=== PATIENT | female | born 1955 | race Caucasian/White ===

== ENCOUNTER 2020-08-22 17:58 | Outpatient (REF) | payer MEDICAID, SELFPAY ==
[2020-08-22 20:35] LABS: Calculated LDL 175 mg/dL (<100); Cholesterol 256 mg/dL (<200); HDL Cholesterol 60 mg/dL (40-60); Triglyceride 105 mg/dL (<150)
[2020-08-22 20:44] LABS: Hemoglobin A1C 5.3 % (<5.7)
== END 2020-08-22 17:59 | disposition home or self-care (01) ==
LOC: NCHCN 17:58
PROVIDERS: Visit Provider Family Medicine
DX: Z00.00 Encounter for general adult medical examination without abnormal findings (principal); Z13.1 Encounter for screening for diabetes mellitus; Z13.220 Encounter for screening for lipoid disorders
CPT/HCPCS: 80061; 83036

== ENCOUNTER 2021-06-25 21:16 | Outpatient (REF) | payer MEDICARE, SELFPAY | END 2021-06-25 21:17 | disposition home or self-care (01) | LOC: NCHCN 21:16 | PROVIDERS: Visit Provider Family Medicine | DX: R30.0 Dysuria (principal) | CPT/HCPCS: 87077; 87086; 87186 ==

== ENCOUNTER 2021-07-10 14:41 | Outpatient (REF) | payer MEDICARE, SELFPAY | END 2021-07-10 14:42 | disposition home or self-care (01) | LOC: NCHCN 14:41 | PROVIDERS: PCP Family Medicine; Visit Provider Family Medicine | DX: N39.0 Urinary tract infection, site not specified (principal) | CPT/HCPCS: 87077; 87086; 87186 ==

== ENCOUNTER 2021-09-06 16:44 | Outpatient (REF) | payer MEDICARE, SELFPAY ==
[2021-09-08 12:34] LABS: COVID-19 RT-PCR UVMMC Result Negative (Negative)
== END 2021-09-06 16:45 | disposition home or self-care (01) ==
LOC: NCHCN 16:44
PROVIDERS: PCP Family Medicine; Visit Provider Family Medicine
DX: Z20.822 Contact with and (suspected) exposure to COVID-19 (principal); J06.9 Acute upper respiratory infection, unspecified
CPT/HCPCS: U0003

== ENCOUNTER 2021-11-22 19:07 | Outpatient (REF) | payer MEDICARE, SELFPAY | END 2021-11-22 19:08 | disposition home or self-care (01) | LOC: LBN 19:07 | PROVIDERS: PCP Family Medicine; Visit Provider Urology | DX: N20.0 Calculus of kidney (principal) | CPT/HCPCS: 87086 ==

== ENCOUNTER 2023-03-03 22:16 | Outpatient (REF) | payer MEDICARE, SELFPAY ==
[2023-03-03 16:17] LABS: HCT 40.5 % (36.0-46.0); HGB 13.1 g/dL (11.2-15.7); MCH 28.3 pg (27.0-33.0); MCHC 32.3 % (32.0-36.0); MCV 88 fL (80-95); MPV 11.6 fL (8.0-11.0); Platelet Count 241 10^3/uL (130-400); RBC 4.63 10^6/uL (3.93-5.22); RDW 13.9 % (11.7-14.6); RDW-SD 44.8 fL; WBC 5.04 10^3/uL (4.4-10.8)
[2023-03-03 16:43] LABS: Anion Gap 8.5 mmol/L (3-11); BUN 21 mg/dL (7-18); CO2 25.5 mmol/L (21.0-32.0); Calcium 10.3 mg/dL (8.5-10.1); Calculated LDL 164 mg/dL (<100); Chloride 105 mmol/L (98-107); Cholesterol 257 mg/dL (<200); Estimated GFR 61.75 (mL/min/1.73m2); Glucose 93 mg/dL (74-106); HDL Cholesterol 64 mg/dL (40-60); Potassium 4.1 mmol/L (3.5-5.1); Sodium 139 mmol/L (136-145); Triglyceride 146 mg/dL (<150)
[2023-03-04 09:20] LABS: Vitamin D 25 Total 43.3 ng/mL (30-100)
== END 2023-03-03 22:17 | disposition home or self-care (01) ==
LOC: NCHCN 22:16
PROVIDERS: PCP Family Medicine; Visit Provider Family Medicine
DX: Z00.00 Encounter for general adult medical examination without abnormal findings (principal); R03.0 Elevated blood-pressure reading, without diagnosis of hypertension; E83.52 Hypercalcemia; M85.88 Other specified disorders of bone density and structure, other site; D72.819 Decreased white blood cell count, unspecified; Z13.220 Encounter for screening for lipoid disorders
CPT/HCPCS: 80048; 80061; 82306; 85027

== ENCOUNTER 2024-03-23 07:54 | Outpatient (REF) | payer MEDICARE, SELFPAY ==
[2024-03-23 14:55] LABS: Anion Gap 6.7 mmol/L (3-11); BUN 13 mg/dL (7-18); CO2 27.3 mmol/L (21.0-32.0); CREATININE 1.1 mg/dL (0.55-1.02); Calcium 10.1 mg/dL (8.5-10.1); Calculated LDL 163 mg/dL (<100); Chloride 108 mmol/L (98-107); Cholesterol 255 mg/dL (<200); Estimated GFR 54.73 (mL/min/1.73m2); Glucose 100 mg/dL (74-106); HDL Cholesterol 73 mg/dL (40-60); Potassium 4.5 mmol/L (3.5-5.1); Sodium 142 mmol/L (136-145); Triglyceride 95 mg/dL (<150)
== END 2024-03-23 07:55 | disposition home or self-care (01) ==
LOC: NCHCN 07:54
PROVIDERS: PCP Family Medicine; Visit Provider Nurse Practitioner Family
DX: E78.5 Hyperlipidemia, unspecified (principal)
CPT/HCPCS: 80048; 80061

== ENCOUNTER 2024-09-27 14:06 | Outpatient (REF) | payer MEDICARE, SELFPAY | END 2024-09-27 14:07 | disposition home or self-care (01) | LOC: NCHCN 14:06 | PROVIDERS: PCP Family Medicine; Visit Provider Family Medicine | DX: R31.0 Gross hematuria (principal); R82.89 Other abnormal findings on cytological and histological examination of urine | CPT/HCPCS: 87077; 87086 ==

== ENCOUNTER 2024-10-08 16:02 | Outpatient (REF) | payer MEDICARE, SELFPAY ==
--- NOTE | 2024-10-08 08:55 | PAPNONF_PTH ---
PATIENT: Little Otero LOC: MERGED WITH [facility]#:[id number] AGE/SX: 68/F ROOM: RE10/08/[address]: Lilo Conde : 1955 BED: DIS: 10/08/2024 SPEC #: [id number] RECD: 10/08/24 17:52 STATUS: RAND RERyan #: [id number] LUCIANO: 10/08/24 08:[address]: Lilo Conde DEPT: [facility] Cytology RECD BY: Sarah Shultz Tissues: 1 - BODY FLUID CYTO(SPUTUM/URINE)UV Procedures: BODY FLUID CYTO(URINE/SPUTUM) Comments: [id number] (TV = 20 ml, 30 ml CYTOLYT ADDED) (REFRIGERATED)
== END 2024-10-08 16:03 | disposition home or self-care (01) ==
LOC: NCHCN 16:02
PROVIDERS: PCP Family Medicine; Visit Provider Family Medicine
DX: R31.0 Gross hematuria (principal); R82.89 Other abnormal findings on cytological and histological examination of urine
CPT/HCPCS: 87086; 88104

== ENCOUNTER 2025-03-29 10:45 | Outpatient (REF) | payer MEDICARE, SELFPAY ==
[2025-03-29 14:47] LABS: ALT 19 U/L (10-49); AST 31 U/L (<34); Albumin 4.4 g/dL (3.4-5.0); Alkaline Phosphatase 120 U/L (46-116); Anion Gap 5.6 mmol/L (3-11); BUN 19 mg/dL (9-23); Bilirubin, Total 0.60 mg/dL (0.2-1.2); CO2 26.4 mmol/L (20.0-31.0); Calcium 9.8 mg/dL (8.3-10.6); Chloride 110 mmol/L (98-107); Cholesterol 247 mg/dL (<200); Glucose 90 mg/dL (74-106); HDL Cholesterol 69 mg/dL (>40); Potassium 4.4 mmol/L (3.5-5.1); Sodium 142 mmol/L (136-145); Total Protein 7.6 g/dL (5.7-8.2)
== END 2025-03-29 10:46 | disposition home or self-care (01) ==
LOC: NCHCN 10:45
PROVIDERS: PCP Family Medicine; Visit Provider Family Medicine
DX: E78.5 Hyperlipidemia, unspecified (principal)
CPT/HCPCS: 80053; 80061